=== PATIENT | male | born 1975 | race Caucasian/White ===

== ENCOUNTER 2018-07-27 15:35 | Inpatient (IN) ==
[2018-07-27] MEDS ORDERED: D5W 1,000 ML IV PRN (16:32)
[2018-07-27] MEDS ORDERED: MOTRIN PO PRN (16:32)
[2018-07-27] MEDS ORDERED: SALINE LOCK IV FLUID XX ONE (16:32)
[2018-07-27] MEDS ORDERED: TYLENOL PO PRN (16:32)
[2018-07-27] MEDS ORDERED: MAALOX PLUS LIQUID PO PRN (16:32)
[2018-07-27] MEDS ORDERED: NICODERM PATCH TD PRN (16:32)
[2018-07-27] MEDS ORDERED: ROBAXIN PO PRN (16:32)
[2018-07-27] MEDS ORDERED: IMODIUM PO PRN (16:32)
[2018-07-27] MEDS ORDERED: DESYREL PO PRN (16:32)
[2018-07-27] MEDS ORDERED: SENOKOT PO PRN (16:32)
[2018-07-27] MEDS ORDERED: ZOFRAN IV PRN (16:32)
[2018-07-27] MEDS ORDERED: TUBERSOL ID ONE (16:32)
[2018-07-27] MEDS ORDERED: SEROQUEL PO PRN (16:32)
[2018-07-27] MEDS ORDERED: BENTYL PO PRN (16:32)
[2018-07-27] MEDS ORDERED: ZOFRAN ODT PO PRN (16:32)
[2018-07-27] MEDS ORDERED: DULCOLAX PR PRN (16:32)
[2018-07-27] MEDS ORDERED: PHENOBARBITAL IV PRN (16:32)
[2018-07-27 17:13] LABS: HEMATOCRIT 24.5 % (42.0-52.0); HEMOGLOBIN 8.4 g/dL (14.0-18.0); MCH 31.9 PG (27-31); MCHC 34.3 g/dL (33-37); MCV 93.2 FL (81-99); MPV 9.2 FL (7.4-10.4); RBC 2.63 XMIL (4.7-6.1); RDW 13.8 % (11.5-14.5); WBC 6.41 X1000 (4.8-10.8)
[2018-07-27 17:25] LABS: UR AMPHETAMINES QUAL NONE DETECTED (NONE DETECT); UR BARBITUATES QUAL NONE DETECTED (NONE DETECT); UR BENZODIAZEPIN QUAL PRESUMPTIVE POSITIVE (NONE DETECT); UR CANNABINOIDS QUAL NONE DETECTED (NONE DETECT); UR COCAINE QUAL NONE DETECTED (NONE DETECT); UR METHADONE QUAL NONE DETECTED (NONE DETECT); UR METHAMPHETAMINE QUAL NONE DETECTED (NONE DETECT); UR OPIATES QUAL NONE DETECTED (NONE DETECT); UR OXYCODONE QUAL NONE DETECTED (NONE DETECT); UR PCP QUAL NONE DETECTED (NONE DETECT); UR PROPOXYPHENE QUAL NONE DETECTED (NONE DETECT); UR TCA QUAL NONE DETECTED (NONE DETECT)
[2018-07-27 17:32] LABS: PROTIME 13.7 Seconds (11.0-16.0)
[2018-07-27 17:44] LABS: URINE SOURCE VOIDED
[2018-07-27 17:50] LABS: AMYLASE 80 U/L (20-200); LIPASE 487 U/L (13-60)
[2018-07-27 17:53] LABS: ALBUMIN 4.6 g/dL (3.5-5.0); CALCIUM 9.3 mg/dL (8.8-10.2); CREATININE 1.7 mg/dL (0.7-1.2)
[2018-07-27] MEDS: LIBRIUM PO SCH (17:53)
[2018-07-27] MEDS ORDERED: M.V.I.-12 10 ML, FOLIC ACID 1 MG, MAGNESIUM SULFATE 1 GM, THIAMINE 100 MG in NS 1,000 ML IV ONE (18:00)
[2018-07-27 18:18] LABS: BILIRUBIN URINE NEGATIVE (NEGATIVE); BLOOD URINE NEGATIVE (NEGATIVE); CLARITY CLEAR (CLEAR); COLOR YELLOW; GLUCOSE URINE NEGATIVE (NEGATIVE); KETONE URINE TRACE mg/dL (NEGATIVE); LEUKOCYTES URINE NEGATIVE (NEGATIVE); NITRITE URINE NEGATIVE (NEGATIVE); PROTEIN URINE TRACE mg/dL (NEGATIVE); UROBILINOGEN URINE NORMAL
[2018-07-27 18:19] LABS: URINE BACTERIA NEGATIVE /HFP; URINE CAST NONE SEEN /LPF; URINE CRYSTAL NONE SEEN /HPF; URINE EPITHELIAL CELLS <10 /HPF (<10); URINE RBC <10 /HPF (<10); URINE WBC <10 /HPF (<10); URINE YEAST NONE SEEN /HPF
[2018-07-27] MEDS ORDERED: DUONEB (A & A) INH ONE (19:58)
[2018-07-27] MEDS ORDERED: LASIX IV ONE (19:58)
[2018-07-27] MEDS: ATARAX PO PRN (20:19)
[2018-07-27] MEDS ORDERED: DEXILANT PO SCH (21:00)
[2018-07-27] MEDS ORDERED: LIBRIUM PO ONE (21:48)
[2018-07-27] MEDS: BYSTOLIC PO SCH (22:13)
[2018-07-27] MEDS: NS 1,000 ML IV SCH (22:26)
[2018-07-28] MEDS: LIBRIUM PO SCH ×4 (01:05→18:31)
[2018-07-28] MEDS: ATARAX PO PRN ×3 (02:56→16:22)
[2018-07-28] MEDS: NS 1,000 ML IV SCH (05:28)
[2018-07-28] MEDS: PROTONIX PO SCH (06:08)
[2018-07-28 07:17] LABS: HEMATOCRIT 20.7 % (42.0-52.0); HEMOGLOBIN 7.1 g/dL (14.0-18.0); MCH 32.3 PG (27-31); MCHC 34.3 g/dL (33-37); MCV 94.1 FL (81-99); RBC 2.2 XMIL (4.7-6.1); RDW 13.9 % (11.5-14.5); WBC 6.22 X1000 (4.8-10.8)
[2018-07-28 08:21] LABS: ALBUMIN 4.1 g/dL (3.5-5.0); CALCIUM 8.6 mg/dL (8.8-10.2); CREATININE 1.5 mg/dL (0.7-1.2); MAGNESIUM 1.2 mg/dL (1.5-2.7); POTASSIUM 4.4 mmol/L (3.5-5.1); TOTAL PROTEIN 6.8 g/dL (6.3-8.3)
[2018-07-28] MEDS: THERA M PLUS PO SCH (09:22)
[2018-07-28] MEDS: CELEXA PO SCH (09:22)
[2018-07-28] MEDS: VITAMIN B-1 PO SCH (09:22)
[2018-07-28] MEDS: FOLIC ACID PO SCH (09:22)
[2018-07-28] MEDS ORDERED: MAGNESIUM SULFATE 2 GM/S.W.I. 2 GM/50 ML IVPB IV ONE (18:26)
[2018-07-28] MEDS: BYSTOLIC PO SCH (20:38)
[2018-07-28] MEDS: MELATONIN PO SCH (20:40)
--- NOTE | 2018-07-28 22:37 | PROGRESS NOTE ---
DATE: 07/28/2018 SUBJECTIVE: Patient has multiple complaints this morning. States he did not sleep last night. Would like to know if there is medication he can take for sleep. The patient has done extensive Google search on all of his symptoms, ailments and possible problems. PHYSICAL: Vital Signs: Temperature 98, pulse 89, respiratory 18, BP 104/59. General: Patient is awake, alert. He is in no current respiratory distress. HEENT: Normocephalic. Neck: Supple. CARDIOVASCULAR: Regular rate. Chest: Clear, nonlabored. Abdomen: Soft, nondistended, nontender. Extremities: Moves all extremities. ASSESSMENT: 1. Hyponatremia, sodium 125. 2. Hyperkalemia. Potassium 6.0 on admit. Currently back to normal. 3. Acute on chronic renal failure. 4. Acute hepatitis. 5. Hyperglycemia. 6. Obesity. 7. Tremors. 8. Myalgias. 9. Paresthesias. 10. Paroxysmal sweating. 11. Alcohol abuse withdrawal and stabilization. PLAN: We will continue patient in hospital. Continue to stabilize with Librium. Continue to disability counselor that he needs outpatient adjustments. Continue to follow. cc: Randall Kemp MD
[2018-07-29] MEDS: LIBRIUM PO SCH ×4 (00:08→17:23)
[2018-07-29] MEDS: ATARAX PO PRN ×3 (04:08→18:49)
[2018-07-29] MEDS: PROTONIX PO SCH (06:07)
[2018-07-29 06:20] LABS: HEMATOCRIT 21.4 % (42.0-52.0); HEMOGLOBIN 7.2 g/dL (14.0-18.0); MCH 32.6 PG (27-31); MCHC 33.6 g/dL (33-37); MCV 96.8 FL (81-99); MPV 9.9 FL (7.4-10.4); RBC 2.21 XMIL (4.7-6.1); RDW 14.6 % (11.5-14.5); WBC 4.47 X1000 (4.8-10.8)
[2018-07-29 06:40] LABS: AGAP 13; ALBUMIN 4.1 g/dL (3.5-5.0); ALKALINE PHOSPHATASE 141 U/L (32-122); BUN 15 mg/dL (8-22); CALCIUM 9.1 mg/dL (8.8-10.2); CHLORIDE 96 mmol/L (98-107); COSMO 270; CREATININE 1.1 mg/dL (0.7-1.2); ESTIMATED GFR > 60; GLUCOSE 107 mg/dL (70-104); GOT 106 U/L (10-34); GPT 87 U/L (10-44); MAGNESIUM 2.2 mg/dL (1.5-2.7); POTASSIUM 4.2 mmol/L (3.5-5.1); SODIUM 134 mmol/L (136-145); TCO2 26 mmol/L (25-35); TOTAL PROTEIN 6.9 g/dL (6.3-8.3)
[2018-07-29] MEDS: CELEXA PO SCH (09:02)
[2018-07-29] MEDS: THERA M PLUS PO SCH (09:02)
[2018-07-29] MEDS: VITAMIN B-1 PO SCH (09:02)
[2018-07-29] MEDS: FOLIC ACID PO SCH (09:02)
[2018-07-29] MEDS: LACTULOSE PO SCH ×2 (10:13→21:45)
[2018-07-29] MEDS: MELATONIN PO SCH (21:45)
[2018-07-29] MEDS: BYSTOLIC PO SCH (21:45)
[2018-07-30] MEDS: LIBRIUM PO SCH ×4 (00:11→16:58)
--- NOTE | 2018-07-30 01:29 | PROGRESS NOTE ---
DATE: 07/29/2018 SUBJECTIVE: Patient notes overall his tremors are better although still present. His myalgias the same. States his anxiety/depression is improving. PHYSICAL EXAMINATION: Vital Signs: Temperature 97 degrees, pulse [*] respiratory 18, BP 108/67. General: Patient is awake, currently in no distress. HEENT: Normocephalic. Neck: Supple. Cardiovascular: Regular rate. Chest: Clear. Abdomen: Soft. Extremities: Moves all extremities. ASSESSMENT: 1. Hypokalemia, resolved. 2. Hyponatremia, resolved. 3. Acute on chronic renal failure, resolved. 4. Mildly elevated liver functions that have remained stable. PLAN: Hopefully can discharge patient home. Discussed with him the importance of avoidance. cc: Randall Kemp MD
[2018-07-30] MEDS: ATARAX PO PRN ×3 (04:07→20:09)
[2018-07-30] MEDS: PROTONIX PO SCH (06:21)
[2018-07-30 06:51] LABS: HEMATOCRIT 21.9 % (42.0-52.0); HEMOGLOBIN 7.1 g/dL (14.0-18.0); MCH 32.3 PG (27-31); MCHC 32.4 g/dL (33-37); MCV 99.5 FL (81-99); MPV 9.9 FL (7.4-10.4); RBC 2.2 XMIL (4.7-6.1); RDW 14.9 % (11.5-14.5); WBC 5.28 X1000 (4.8-10.8)
[2018-07-30 07:22] LABS: ALBUMIN 4.3 g/dL (3.5-5.0); CALCIUM 9.2 mg/dL (8.8-10.2); CREATININE 1.4 mg/dL (0.7-1.2); POTASSIUM 3.9 mmol/L (3.5-5.1); TOTAL BILIRUBIN 0.8 mg/dL (0.20-1.00); TOTAL PROTEIN 7.1 g/dL (6.3-8.3)
[2018-07-30] MEDS: FOLIC ACID PO SCH (08:35)
[2018-07-30] MEDS: CELEXA PO SCH (08:36)
[2018-07-30] MEDS: THERA M PLUS PO SCH (08:36)
[2018-07-30] MEDS: VITAMIN B-1 PO SCH (08:36)
[2018-07-30] MEDS: LACTULOSE PO SCH ×2 (11:01→20:14)
[2018-07-30] MEDS: REVIA PO SCH (13:01)
--- NOTE | 2018-07-30 17:44 | PROGRESS NOTE ---
DATE: 07/30/2018 SUBJECTIVE: Patient states he is feeling a little bit better this morning. He is having less stress. However, he is still very worried, anxious, nervous over going home. Hopes that he can stay in the hospital for several more days. PHYSICAL EXAMINATION: General: Vital signs reviewed and stable. He is awake, alert. He is in no distress. Vital Signs: Temperature 97.6, pulse 75, respiratory rate 20, BP 121/77. General: Patient is awake, alert. He is in no current respiratory distress. HEENT: Normocephalic. Neck: Supple. CARDIOVASCULAR: Regular rate. No murmurs. Chest: Clear, nonlabored. Abdomen: Soft, nondistended. Extremities: Moves all extremities. Neurologic: No focal changes. ASSESSMENT: 1. Anemia of chronic disease. Hemoglobin and hematocrit is stable at 721. 2. Acute on chronic alcoholic hepatitis. 3. Hyperkalemia, resolved. 4. Hyponatremia, resolved. 5. Chronic anxiety. 6. Depression. 7. Alcoholism and withdrawal. PLAN: Overall, the patient has continued to improve. We will continue to wean his Librium and follow. cc: Randall Kemp MD
--- NOTE | 2018-07-30 19:02 | HISTORY AND PHYSICAL ---
CHIEF COMPLAINT: Nausea, vomiting. HISTORY OF PRESENT ILLNESS: Patient is a 43-year-old male, who presented to [facility] secondary to nausea, vomiting, abdominal pain, myalgias, paresthesias, paroxysmal sweating, acute anxiety. States he has always had an issue with alcohol, but as of late, he has had some increased stressors with getting a divorce and losing his job in the past 3 months. He states he has been drinking very heavily ever since. SOCIAL HISTORY: Patient currently is , but getting . He is currently unemployed as he has lost his job recently. Lives at home in [place]. Family lives in different city. PAST MEDICAL HISTORY: Chronic anxiety, depression, frequent panic attacks, hypertension, chronic reflux. He has had a history of blackouts that are alcohol-related, hypertension. MEDICATIONS: Xanax 1 mg 3 times a day, Dexilant 40, citalopram 20, amlodipine/valsartan 10/320, Bystolic 5. ALLERGIES: Penicillin. REVIEW OF SYSTEMS: His CINA score is 22, secondary to nausea, vomiting, frequent headaches, tremors, myalgias, severe anxiety, recent blackouts due to alcohol, slow speech, flat affect, has had recent thoughts of suicide, but states he does not want to carry anything out. Denies any fevers, chills, headaches, blurred vision, change in vision. Denies any focalized numbness, tingling, weakness in extremities. Denies any dysuria or urinary frequency, urgency, hesitancy. Denies polyuria, polydipsia. Denies skin rashes, weight loss or weight gain. SUBSTANCE ABUSE HISTORY: The patient was in [facility] in 2014 and [facility] 2018 for outpatient psychiatric treatment. Started drinking at 19. Has been drinking for years, although he recently has started really drinking heavily. Currently drinking at least a gallon of wine a day for the past 4 weeks. He has also been taking his Xanax 1 mg 3 times daily. FAMILY HISTORY: Noncontributory. PHYSICAL EXAMINATION: GENERAL: Vital signs reviewed. Patient is awake, alert. He is in no current respiratory distress although he is quite stressed. He has difficulty answering questions frequently has to be redirected to answer said questions. Temperature 98, pulse 89, respiratory rate 20, BP 103/55. HEENT: Normocephalic. NECK: Supple. CARDIOVASCULAR: Regular rate. No murmurs. CHEST: Clear, nonlabored. ABDOMEN: Soft, nondistended, nontender. EXTREMITIES: Moves all extremities. NEUROLOGIC: No focal neurological changes. SKIN: Warm, dry. No rashes. ASSESSMENT: 1. Nausea, vomiting and abdominal pain. 2. Myalgias. 3. Paresthesias. 4. Paroxysmal sweating. 5. Tremors. 6. Alcohol abuse withdrawal and stabilization. 7. Chronic anxiety, depression. PLAN: We will continue patient in the hospital. Continue to follow. Place him on high-dose Librium taper. Begin counseling, further orders as needed. cc: Randall Kemp MD
[2018-07-30] MEDS: BYSTOLIC PO SCH (20:10)
[2018-07-30] MEDS: MELATONIN PO SCH (22:06)
[2018-07-31] MEDS: ATARAX PO PRN (02:25)
[2018-07-31] MEDS: PROTONIX PO SCH (06:10)
[2018-07-31 07:52] VITALS: BP 112/74
[2018-07-31] MEDS: THERA M PLUS PO SCH (08:18)
[2018-07-31] MEDS: FOLIC ACID PO SCH (08:18)
[2018-07-31] MEDS: VITAMIN B-1 PO SCH (08:18)
[2018-07-31] MEDS: CELEXA PO SCH (08:18)
[2018-07-31] MEDS: LIBRIUM PO SCH (08:18)
[2018-07-31] MEDS: REVIA PO SCH (08:18)
[2018-07-31] MEDS: LACTULOSE PO SCH (08:23)
--- NOTE | 2018-07-31 18:42 | DISCHARGE SUMMARY ---
ADMISSION DATE: 07/27/2018 DISCHARGE DATE: 07/31/2018 DISCHARGE DIAGNOSES: 1. Nausea and vomiting. 2. Abdominal pain. 3. Myalgias. 4. Paresthesias. 5. Tremors. 6. Anxiety. 7. Depression. 8. Alcohol withdrawal, abuse, and stabilization. 9. Hypertension. 10. Chronic reflux. 11. Chronic panic attacks. CONSULTATIONS: None. PROCEDURES: None. BRIEF HOSPITAL COURSE: The patient is a 43-year-old male who presented to [facility] secondary to nausea, vomiting, abdominal pain, tremors, and myalgias. He was treated in the usual fashion and placed on high-dose Librium taper, and continued to wean. Counseling was performed each day by myself. DISPOSITION: Patient will be discharged home. He will continue to follow up outpatient with treatment facility of choice. The patient will be discharged with a 3 day Librium taper as well as hydroxyzine as needed. I also discussed with patient the use of medication assisted therapy, naltrexone, on which he will be discharged home. TIME SPENT: Greater than 30 minutes was spent on total care. cc: Randall Kemp MD
[2018-07-31] MEDS ORDERED: LIBRIUM PO SCH (21:00)
== END 2018-07-31 10:51 | disposition home or self-care (01) | DRG 897 ==
LOC: P.DIRADM 16:08 → P.MEDSURG 16:09
PROVIDERS: ADMIT Family Medicine; ATTEND Family Medicine
CPT/HCPCS: 80053; 80104; 80301; 80305; 80307; 80320; 81001; 82055; 82150; 83690; 83735; 85027; 85610; 86580; 94640; A9270; G0431; G0434; G0477; G0480; G6040; J1940; J2405; J3475; J7030